=== PATIENT | female | born 1965 | race Caucasian/White ===

== ENCOUNTER 2016-12-16 11:04 | Day surgery (SDC) | payer OTHER ==
[2016-12-16] MEDS ORDERED: LIDOCAINE 1% 5 ML SDV ONE (11:49)
[2016-12-16] MEDS ORDERED: fentaNYL 250 MCG/5 ML INJ ONE (11:55)
[2016-12-16] MEDS ORDERED: PROPOFOL 200 MG/20 ML VIAL ONE (11:55)
[2016-12-16] MEDS ORDERED: ROCURONIUM 100 MG/10 ML VIAL ONE (11:57)
[2016-12-16] MEDS ORDERED: BUPIVACAINE 0.25% 30 ML SDV ONE (11:57)
[2016-12-16] MEDS ORDERED: SILVER NITRATE APPLICATOR 1 APPL TP ONE (11:57)
[2016-12-16 12:03] LABS: COLOR YELLOW; LEUKOCYTE ESTERASE,URINE NEGATIVE (NEGATIVE); NITRITE,URINE NEGATIVE (NEGATIVE)
[2016-12-16] MEDS ORDERED: LIDOCAINE 1% 5 ML SDV ID PRN (12:08)
[2016-12-16] MEDS ORDERED: LR 1,000 ML IV ONE (12:08)
[2016-12-16 12:11] LABS: % IMMATURE GRANULYOCYTES 0.2 % (0.0-1.1); ABSOLUTE IMMATURE GRANULOCYTES 0.01 10^3/uL (0.00-0.10); ADD DIFF? NO; ADD MORPH? NO; ADD SCAN? NO; ATYPICAL LYMPHOCYTE FLAG 30 (0-99); FRAGMENT RBC FLAG 0 (0-99); HEMATOCRIT 41.3 % (38.0-47.0); HEMOGLOBIN 13.9 g/dL (12.6-16.3); LEFT SHIFT FLG 0 (0-99); LIPEMIA HEMOLYSIS FLAG 80 (0-99); MEAN CELL HEMOGLOBIN 30.1 pg (27.9-34.1); MEAN CELL HEMOGLOBIN CONCENTR. 33.7 g/dL (32.4-36.7); MEAN CELL VOLUME 89.4 fL (81.5-99.8); MEAN PLATELET VOLUME 9.9 fL (8.7-11.7); PLATELET CLUMPS FLAG 0 (0-99); PLATELET COUNT 216 10^3/uL (150-400); RED BLOOD CELL COUNT 4.62 10^6/uL (4.18-5.33); RED CELL DISTRIBUTION WIDTH 13.7 % (11.5-15.2)
[2016-12-16] MEDS ORDERED: SCOPOLAMINE HYDROBROMIDE 1.5 MG PATCH TD ONE (12:12)
[2016-12-16] MEDS ORDERED: MIDAZOLAM 2 MG/2 ML VIAL ONE (12:24)
[2016-12-16] MEDS ORDERED: epHEDrine SULFATE 10 MG/ML SYR ONE (13:42)
[2016-12-16] MEDS ORDERED: PHENYLEPHRINE HCL 100 MCG/ML SYR ONE (13:58)
[2016-12-16] MEDS ORDERED: DEXAMETHASONE 4 MG/ML VIAL ONE ×2 (14:09)
[2016-12-16] MEDS ORDERED: ONDANSETRON 4 MG/2 ML VIAL ONE (15:01)
[2016-12-16] MEDS ORDERED: GLYCOPYRROLATE 0.2 MG/1 ML VIAL ONE ×2 (15:04→15:05)
[2016-12-16] MEDS ORDERED: NEOSTIGMINE METHYLSULFATE 5 MG/5 ML SYR ONE (15:04)
[2016-12-16] MEDS ORDERED: fentaNYL 100 MCG/2 ML INJ ONE (15:38)
[2016-12-16] MEDS ORDERED: KETOROLAC 30 MG/1 ML SDV ONE (15:41)
[2016-12-16] MEDS ORDERED: OXYCODONE/APAP 5/325 TAB PO PRN (15:44)
[2016-12-16] MEDS ORDERED: LR 1,000 ML IV SCH (16:00)
[2016-12-16] MEDS ORDERED: KETOROLAC 30 MG/1 ML SDV IVP ONE (16:00)
[2016-12-16] MEDS ORDERED: LR 500 ML IV ONE (16:30)
--- NOTE | 2016-12-18 15:58 | GOP ---
[f rep st] OPERATIVE REPORT DATE OF OPERATION: 12/16/2016 SURGEON: Carmelita Dennis MD SENIOR CYBER SECURITY ANALYST: Makeda Faria MD ANESTHESIA: General. PREOPERATIVE DIAGNOSIS: 1. Left ovarian cyst. 2. Endometrial thickening on ultrasound. POSTOPERATIVE DIAGNOSIS: 1. Left ovarian cyst. 2. Endometrial thickening on ultrasound. PROCEDURE PERFORMED: 1. Diagnostic hysteroscopy with dilation and curettage. 2. Laparoscopic bilateral salpingo-oophorectomy. FINDINGS: 1. Her uterine cavity was found to appear normal with no masses or lesions noted. Bilater al ostia were seen clearly. 2. The patient was seen intraoperatively to have a left ovarian cyst, as suspected, and a normal righ t ovary. SPECIMENS: 1. Bilateral ovaries and tubes. 2. Ovarian cyst fluid. 3. Endometrial curettings. ESTIMATED BLOOD LOSS: 10 cc. INDICATIONS: Patient is a 51-year-old 2, para 2, menopausal female, on hormone replacement t herapy, with a persistently enlarged left ovarian cyst, currently measuring 7 x 6 x 5 cm. She had a normal CA-125, and agreed with removal of the left ovary. She also desired a bilateral salpingo-ooph orectomy, due to her menopausal status. Her ultrasound also revealed a thickened endometrium at 5.2 mm. She had undergone an endometrial biopsy that was insufficient in August 2016. It was recommend ed to her, and she agreed to proceed with a hysteroscopy and D and C for further evaluation. DESCRIPTION OF PROCEDURE: The patient was taken to the operating room, where general anesthesia was found be adequate. Patient was prepared and draped normal sterile fashion in the dorsal lithotomy po sition. A speculum was placed in the patient's vagina, and a Askew retractor used to visualize the ce rvix clearly. A single-toothed tenaculum was placed on the anterior lip of the cervix, and the cervi x was gently dilated up to 6 mm with Hegar dilators with no complications. A 0 degree Truclear hyste roscope was placed into the cervix and advanced into the uterine cavity without any complications. T he uterine cavity was visualized clearly with bilateral ostia seen. There were no masses or lesions noted. The hysteroscope was removed, and a sharp curettage was then performed, and endometrial curet tings sent to Pathology. The tenaculum was then placed, and a uterine Eric manipulator was placed in to the cervix to provide a means to manipulate the uterus via laparoscopy. Speculums were removed. The surgeons then re-gowned in a sterile fashion, and attention was turned to the patient's abdomen. A 10 mm skin incision was made in the patient's umbilicus, after injection of local anesthetic with 0.25% Marcaine plain. A Veress needle was placed into the patient's umbilicus and the peritoneal cav ity while tenting the abdominal wall. Intraperitoneal placement was confirmed with use of a water-fi lled syringe and appropriate entry CO2 gas pressures. The abdomen was then insufflated with CO2 gas and tenting was noted over her liver. The Veress needle was removed, and then an Optiview trocar was then placed with intraperitoneal placement confirmed with the use of the laparoscope. The patient w as then placed in Trendelenburg positioning. An incision was then made on the left side 2 cm superio r and anterior to the anterior iliac spine on the left side. A 5 mm trocar was then placed through t his incision into the peritoneal cavity under direct visualization. In a similar fashion, a trocar w as placed on the right side. The pelvis and abdomen were surveyed with findings as discussed above. The left ovary and tube were grasped and elevated, and the left ureter was visualized clearly to be peristalsing. The infundibulopelvic ligament was then grasped with the [employer] PK instrument, and it w as coagulated 3 times. It was then transected. The tube and ovary were then sequentially transected from its attachments laterally to medially, finalizing with coagulating and transecting the utero-ov daryl ligament. It was then placed in the posterior cul-de-sac, and the right fallopian tube and ova ry were grasped and elevated. The ureter was visualized clearly, and then the infundibulopelvic liga ment was grasped, coagulated, and transected with the [employer]. It was then sequentially dissected away from its attachments laterally to medially using the [employer], finalizing by transecting the utero-ovar oli ligament. Hemostasis was visualized at all sites. An attempt was then made to drain the ovarian cyst using a laparoscopic needle. A small amount of fluid was removed from the ovary and was noted to be clear. However, the needle was very dull, and we were unable to drain all the fluid completely . The camera was then placed in a side port, and an EndoCatch bag placed through the 10 mm trocar. Both specimens were placed in the EndoCatch bag, and the specimens were brought through the umbilical incision. The ovarian cyst was then drained using a needle under direct visualization through the u mbilical incision under direct visualization. After the ovarian cyst was drained, the specimen was r emoved from the abdomen. On inspection, the left ovary and tube were confirmed to have been removed, but the right ovary had escaped out of the bag before removal of the bag in the patient's abdomen. Therefore, the right ovary and tube were found to be in the posterior cul-de-sac and were removed fro m the patient's abdomen through the umbilical incision with the a second EndoCatch bag. After remova l of the specimens, all pedicles were examined closely, and hemostasis obtained with the use of the B ovie. The trocars were removed under direct visualization, and the gas was allowed to escape from th e abdomen. The fascia was closed in the umbilical port site with a [id number] stitch of 0 Vicryl. The skin incisions were then all closed with subcuticular stitch of 4-0 Monocryl, Steri-Strips, and bandage d ressings. All lap, sponge, and needle counts were correct x2. Patient was transferred to the PACU in stable an d good condition. COMPLICATIONS: None. DRAINS: None. IV FLUIDS: 1500 cc. URINE OUTPUT: 150 cc. /[id number]/MODL
== END 2016-12-16 18:40 | disposition home or self-care (01) ==
LOC: FSGY 11:04
PROVIDERS: ATTEND Obstetrics & Gynecology
PROC: 0UT24ZZ Resection of Bilateral Ovaries, Percutaneous Endoscopic Approach (ICD-10-PCS; principal; 2016-12-16 12:30)
PROC: 0UT74ZZ Resection of Bilateral Fallopian Tubes, Percutaneous Endoscopic Approach (ICD-10-PCS; principal; 2016-12-16 12:30)
PROC: 0UDB8ZX Extraction of Endometrium, Via Natural or Artificial Opening Endoscopic, Diagnostic (ICD-10-PCS; principal; 2016-12-16 12:30)
DX: N83.202 Unspecified ovarian cyst, left side (principal); E03.9 Hypothyroidism, unspecified
CPT/HCPCS: J1100; J1885; J2250; J2370; J2405; J2704; J2710; J3010

== ENCOUNTER → 2017-03-07 | Outpatient (CLI) | payer OTHER | LOC: BMCIMAGING 09:56 | DX: Z12.31 Encounter for screening mammogram for malignant neoplasm of breast (principal) | CPT/HCPCS: G0202 ==

== ENCOUNTER → 2017-03-18 | Outpatient (CLI) | payer OTHER | LOC: BMCIMAGING 12:50 | DX: R92.8 Other abnormal and inconclusive findings on diagnostic imaging of breast (principal) | CPT/HCPCS: G0206 ==

== ENCOUNTER → 2017-08-04 | Outpatient (CLI) | payer OTHER | LOC: BMCIMAGING 14:24 | PROVIDERS: ATTEND Internal Medicine | DX: Z13.820 Encounter for screening for osteoporosis (principal); M85.80 Other specified disorders of bone density and structure, unspecified site ==

== ENCOUNTER → 2018-03-11 | Outpatient (CLI) | payer OTHER | LOC: BMCIMAGING 13:28 | PROVIDERS: ATTEND Internal Medicine | DX: Z12.31 Encounter for screening mammogram for malignant neoplasm of breast (principal) ==

== ENCOUNTER → 2019-03-15 | Outpatient (CLI) | payer OTHER ==
[~2019-03-15] MED LIST: IOPAMIDOL (ISOVUE-370) 150 ML BTL IV ONE; METOPROLOL TARTRATE 5 MG/5 ML INJ ONE; NITROGLYCERIN 0.4 MG BTL SL ONE
== END ==
LOC: FIMAGING 10:18
PROVIDERS: ATTEND Internal Medicine
DX: R07.9 Chest pain, unspecified (principal); Z12.31 Encounter for screening mammogram for malignant neoplasm of breast
CPT/HCPCS: Q9967